=== PATIENT | female | born 1935 | race Caucasian/White ===

== ENCOUNTER → 2016-08-10 | Outpatient (CLI) | payer OTHER ==
--- NOTE | 2016-08-10 15:48 | MAMMOGRAPHY REPORT ---
BILATERAL DIGITAL SCREENING MAMMOGRAM WITH CAD: 08/10/2016 CLINICAL HISTORY: Routine screening examination. TECHNIQUE: Bilateral CC and MLO views were obtained. Current study was also evaluated with a Comput er Aided Detection (CAD) system. COMPARISON: Comparison is made to exams dated: 07/24/2015 mammogram, 06/06/2014 mammogram, 06/05/2013 ultrasound, 06/05/2013 mammogram, 05/30/2013 mammogram, and 05/08/2012 mammogram - [facility]. BREAST COMPOSITION: The tissue of both breasts is heterogeneously dense, which may obscure small ma sses. FINDINGS: There is a 10 mm asymmetry in the lateral posterior right breast, only seen on the CC vie w but thought to project superiorly on the MLO view. Additional spot compression, symphysis views a nd possibly ultrasound are recommended. There are possible clustered microcalcifications in the sup erior, middle to posterior left breast, for which additional spot magnification views are recommende d. There are scattered benign round calcifications and moderate vascular calcifications in the breasts. No other suspicious mass, architectural distortion or cluster of microcalcifications is seen. IMPRESSION: ACR BI-RADS CATEGORY 0: INCOMPLETE EVALUATION: NEED ADDITIONAL IMAGING EVALUATION The right lateral asymmetry and left superior microcalcifications need additional imaging evaluation . The patient will be called to schedule an appointment. Approximately 10% of breast cancers are not detected with mammography. A negative mammographic repor t should not delay biopsy if a clinically suggestive mass is present. Keisha Goode M.D. ay/:08/10/2016 14:34:32 Nanny Caregiver: Sonia CORNELL(Benito)(M), [facility] letter sent: Addl Imaging 0 BI-RADS Code: ACR BI-RADS Category 0: Incomplete Evaluation: Need Additional Imaging Evaluation
== END | disposition home or self-care (01) ==
LOC: C.MAMM 14:11
PROVIDERS: ATTEND Nurse Practitioner
DX: Z12.31 Encounter for screening mammogram for malignant neoplasm of breast (principal); R92.0 Mammographic microcalcification found on diagnostic imaging of breast; N64.89 Other specified disorders of breast

== ENCOUNTER → 2016-08-17 | Outpatient (CLI) | payer OTHER ==
--- NOTE | 2016-08-18 08:16 | MAMMOGRAPHY REPORT ---
BILATERAL DIGITAL DIAGNOSTIC MAMMOGRAM TOMOSYNTHESIS AND TARGETED RIGHT ULTRASOUND: 08/17/2016 CLINICAL HISTORY: 80 year-old woman called back from screening mammography for a right lateral asymm etry and left breast microcalcifications. TECHNIQUE: Spot magnification left CC, ML, spot compression 2-D digital and tomosynthesis right CC a nd MLO views were obtained. COMPARISON: Comparison is made to exams dated: 08/10/2016 mammogram, 07/24/2015 mammogram, 06/06/2014 m ammogram, 06/05/2013 mammogram, 05/30/2013 mammogram, and 05/08/2012 mammogram - [facility]. BREAST COMPOSITION: The tissue of both breasts is heterogeneously dense, which may obscure small ma sses. FINDINGS: Spot magnification CC and ML views of the left breast demonstrate several, at least 5 clus ters of punctate and amorphous microcalcifications scattered in the breast. When comparing back to prior available mammograms, particularly prior CC views, the microcalcifications appear similar in n umber and distribution dating back to at least 05/05/2008, therefore likely benign. There are other benign rim calcifications and mild vascular calcifications of the left breast. No obvious suspicio us mass or focal area of architectural distortion. The right breast asymmetry partially effaces on the spot compression tomosynthesis images, but given slight increased conspicuity comparing to prior mammograms, additional evaluation with ultrasound w as performed. Targeted ultrasound was performed throughout the lateral right breast. In the 10:00 axis, approxima tely 8 cm from the nipple, there is a predominantly anechoic cystic appearing parallel mass. It aminta sures 6.4 x 2.5 x 6.3 mm. A portion of this mass appears isoechoic and could represent a microcysti c cluster. This mass is thought to correlate with the mammographic asymmetry and to assess mammogra phicsonographic correlation, a skin BB was placed overlying the sonographic abnormality and repeat right CC and MLO tomosynthesis images were obtained. The BB marker aligns with the asymmetry in que stion on the right CC view in the lateral aspect of the breast. Based on this projection, the asymm etry effaces even more than on the spot compression view and appears very similar to prior mammogram s, suggesting benignity. On ultrasound, there is a nearly anechoic cystic appearing circumscribed mass in the 9:[address], 7 cm from the nipple, measuring 3.1 x 2.8 x 2.9 mm. Another cystic appearing mass in the 10:00 right breast, 7 cm from the nipple (it should be noted that the ultrasound images are mislabeled rig ht breast 4:00, 7 cm from nipple), measures 3.5 x 2.7 x 3.0 mm. There is a lobulated lymph node in the right 10:00 axis, 11 cm from the nipple versus axillary tail with a cortex measuring 3.3 mm. No suspicious right axillary lymphadenopathy is identified. IMPRESSION: ACR-BI-RADS CATEGORY 3: PROBABLY BENIGN, TARGETED ULTRASOUND ACR-BI-RADS CATEGORY 3: TX OBABLY BENIGN 1. A 6 month short interval follow-up diagnostic right mammogram and repeat targeted ultrasound in the 10:00 axis is recommended to ensure stability of an increasing asymmetry thought to correlate wi th a predominantly cystic mass in the right 10:00 breast, 8 cm from the nipple identified on ultraso und, although this is thought to represent a cyst and microcystic cluster. 2. Short interval follow-up left diagnostic mammograms with repeat spot magnification views are rec ommended to ensure stability of several clusters of punctate and amorphous microcalcifications in th e left breast, thought to have been present dating back to 2008 but slightly increased in conspicuit y. These results and recommendations were discussed with the patient at the time of the exam. Approximately 10% of breast cancers are not detected with mammography. A negative mammographic repor t should not delay biopsy if a clinically suggestive mass is present. Keisha Goode M.D. ay/:08/17/2016 15:15:03 Fitness Supervisor: Anuel CORNELL(R)(M), [facility] letter sent: Follow Up Recommended 3 BI-RADS Code: ACR-BI-RADS Category 3: Probably Benign Ultrasound BI-RADS: ACR-BI-RADS Category 3: P robably Benign
== END | disposition home or self-care (01) ==
LOC: C.MAMM 14:18
PROVIDERS: ATTEND Nurse Practitioner
DX: R92.8 Other abnormal and inconclusive findings on diagnostic imaging of breast (principal); N64.89 Other specified disorders of breast